=== PATIENT | female | born 1965 | race Caucasian/White ===

== ENCOUNTER 2016-09-12 15:48 | Emergency (ER) | payer OTHER ==
[~2016-09-12] VITALS: Ht 157.5 cm; Wt 47.6 kg
[~2016-09-12 15:48] MED LIST: ALBUTEROL2.5 MG/NEB IN; AMBIEN 10MG TAB10 MG PO; APAP/BUTALBITAL1 TA1 PO; ASPIRIN 81MG TA81 MG PO; ATIVAN1 MG PO; BREO ELLIPTA 21 EACH IH; BREO ELLIPTA1 POW IH; CELEXA40 MG PO; CLINORIL GENER150 MG PO; ESTRADIOL1 M1 PO; FIORICET W/CODE1 CA1 PO; GABAPENTIN 400400 M1 PO; GABAPENTIN300 M1 PO; HUMALOG100 U/M1 SC; HUMALOG100 U/ML SC; HYDROXYZINE HYD50 M1 PO; INCRUSE EL62.5 MCG/A IH; INDERAL OR; LANTUS INS100 UNITS/ SC; LEVEMIR100 U/ML SC; LEVOTHYROXINE0.15 M1 PO; LOMOTIL 2.5MG.2.5 MG PO; LORTAB 5/500 501 TAB PO; METFORMIN500 MG PO; NAPROXEN SODIU500 MG PO; NEXIUM40 MG PO; NORCO 325 MG-51 TAB PO; PRAMIPEXOLE DI0.5 MG PO; PRAVACHOL20 MG PO; PRAVACHOL40 MG PO; PREMARIN 0.60.625 MG PO; PROPRANOLOL HCL60 MG PO; SEPTRA DS 800 M1 TAB PO; SILVADENE1% TP; SYNTHROID PO; SYNTHROID0.088 MG PO; TRAMADOL 50MG T50 MG PO; TRAMADOL50 M1 PO; ULTRACET 325 MG1 TAB PO; ULTRAM50 MG PO; VENTOLIN H0.09 MG/Ac IH; ZOFRAN4 MG PO; ZONEGRAN25 MG PO
--- NOTE | 2016-09-12 16:50 | Emergency Room Report ---
History of Present Illness Time Seen by [id number] Presenting Problem in Triage Pt arrived:Walked Presenting Problem:C/O RIGHT SHOULDER PAIN X 1 MONTH. PATIENT REPORTS INJURY TO RIGHT SHOULDER. 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 N Clinical Suspician of Infection? N Mental Status: 1 - Regular (Normal Baseline) Sepsis Risk:Low Sepsis Risk Have you (or family members/close friends) recently traveled outside the [place]? N If Yes, where/when: Have you had exposure to infectious disease within the past month? N TB? Other? Specify: Source patient, RN notes reviewed Exam Limitations no limitations Comment Pt here with complaints of right shoulder pain "in the joint" for one month after throwing away things into a dumpster. Had been dealing with this pain by taking ibuprofen but aggravated it today by painting. Now pain is much worse than it was previously and is radiating toward elbow and into scapula. Timing/Duration 1 month, worse today Severity moderate Modifying Factors Improves With: medication, rest. Worsens With: exertion, movement, palpatioin. Associated Symptoms none ALLERGIES Coded Allergies: tramadol (Severe, 09/12/16) Blueberry (Mild, 01/25/16) mushroom (Mild, 01/25/16) Home Medications Active Scripts TRAMADOL HCL (Tramadol) 50 MG PO Q6HP PRN pain #12 TAB Prov: 07/08/16 HYDROXYZINE HCL (Hydroxyzine Hydrochloride) 50 MG PO TIDP PRN itching #20 TAB Prov: 07/08/16 HYDROCODONE/ACETAMINOPHEN ([place] 5-325 Tablet) 1 TAB PO Q6HP PRN pain #10 TAB Prov: 07/08/16 Silver Sulfadiazine (Silvadene) 1 CRE TP QID #1 TUB Ref 2 Prov: 05/18/16 Tramadol Hcl (Ultram 50MG) 50 MG PO QIDP PRN pain #12 TAB Prov: 05/18/16 Reported Medications Sulindac (Clinoril Generic 150MG Tab) 150 MG PO BID #60 Zonisamide (Zonegran) 75 MG PO BID CITALOPRAM HYDROBROMIDE (Citalopram HBr) 40 MG PO DAILY Zolpidem Tartrate (Ambien 10MG) 10 MG PO QHS Insulin Glargine (Lantus Insulin Vial) 10 UNITS SC BID PRAMIPEXOLE DI-HCL (Pramipexole Dihydrochloride) 0.5 MG PO DAILY #60 INSULIN LISPRO (Humalog) 0 UNITS SC QIDP PRN DIABETES Estradiol 1 MG PO DAILY #30 PROPRANOLOL HCL (Propranolol HCl ER) 60 MG PO DAILY #30 UMECLIDINIUM BROMIDE (Incruse Ellipta) 62.5 MCG IH DAILY Albuterol Sulfate (Ventolin Hfa) 0.09 MG IH Q4HP PRN BREATHING #18 Gabapentin (Gabapentin 400MG Capsule) 400 MG PO TID #90 Levothyroxine Sodium 0.15 MG PO DAILY #30 APAP 325MG/CAFF 40MG/BUTA 50MG (Juepwe-Ypoeakxz-Mtti 50-325-40) 1 TAB PO Q6HP PRN HEADACHE #21 ASPIRIN (Aspirin) 81 MG PO DAILY Pravastatin Sodium (Pravachol) 40 MG PO QHS #30 (GUSTABO THOMAS) Presenting Problem in Triage Pt arrived:Walked Presenting Problem:C/O RIGHT SHOULDER PAIN X 1 MONTH. PATIENT REPORTS INJURY TO RIGHT SHOULDER. 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 N Clinical Suspician of Infection? N Mental Status: 1 - Regular (Normal Baseline) Sepsis Risk:Low Sepsis Risk Have you (or family members/close friends) recently traveled outside the [place]? N If Yes, where/when: Have you had exposure to infectious disease within the past month? N TB? Other? Specify: (Debra BALLARD, Miguel) History Medical History General CAD? No Angina: No IA: No Hypertension? No Hyperlipidemia? Yes CHF? No DVT? No PE? No COPD? Yes Asthma? No Anemia? No GERD? No Gastric ulcers? No GI Bleed? No Hernia? No Thyroid Problems? Yes Hypothyroidism? Yes CVA? No Seizures? Yes Diabetes? Yes Insulin Dependent: Yes Insulin Pump: No Home FSBS? Yes Renal Insuffiency? No End Stage Renal Disease? No UTI? Yes Stones? No BPH? No GB Disease: Yes Nephritic Syndrome? No Asplenia? No Hepatitis? No Sickle Cell Disease? No Arthritis? Yes Migraines? No Cataracts? No Glaucoma? No MRSA? Yes HIV? No TB? No Anxiety? Yes Depression? Yes Cancer? No More? 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 Hx LMP N/A Family History Family Hx Diabetes Yes CAD No Hypertension No Hyperlipidemia No Cancer Yes TB No Social History Smoking Hx Smoker: Current Every Day Smoker Tobacco: Yes Type Cigarettes Packs/day < 1 Pack Alcohol Alcohol: No (GUSTABO THOMAS) Review of Systems All Other Systems Reviewed and Negative Musculoskeletal joint pain (rt shoulder) (GUSTABO THOMAS) Physical Exam Vital Signs Vital Signs Date Time Temp Pulse Resp B/P Pulse O2 O2 Flow FiO2 Ox Delivery Rate 09/12 1749 82 18 103/52 99 09/12 1710 19 09/12 1632 98.0 72 18 107/61 97 General Appearance normal appearance, WD/WN Eye Exam - bilateral eye normal exam, bilateral eye PERRL, bilateral eye EOMI Ear, Nose, Throat hearing grossly normal Respiratory Status Yes: trachea midline, chest symmetrical, non tender chest. No: respiratory distress. Lung Sounds bilateral: normal breath sounds, lungs clear. Cardiovascular normal exam, regular rate/rhythm, no peripheral edema, no gallop, no JVD, no murmur, no rub, normal peripheral pulses Back gait normal (normal c-spine) Extremities Pain with palpation over right humeral head, pain with movement over head and across chest, otherwise negative shoulder exam. 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 No Results/Orders Current Medication Orders Sig/Brianda Start time Last Medication Dose Route Stop Time Status Admin Ketorolac 0 .STK-MED ONE 09/12 1708 DC Tromethamine .ROUTE Ketorolac 60 MG ONCE ONE 09/12 1700 DC 09/12 Tromethamine IM 09/12 1701 1710 Orders Procedure Date/time Status [id number] 09/12 1651 Active XRAY/CT/US XRAY/CT/US XR interpretation by reviewed by me Xray Results normal/NAD, no fracture seen (GUSTABO THOMAS) Progress - I have discussed the patient's case with the mid-level practitioner. I agree with the the management and disposition based upon the information reported to me. (Miguel Richardson MD) Departure Departure Time of Disposition 174 Disposition DC Home or Self Care(routine) Clinical Impression Primary Impression: Shoulder bursitis Qualifiers: Laterality: right Qualified Code: M75.51 - Bursitis of right shoulder Condition STABLE Referrals NICKI VELAZCO (Family) Patient Instructions DI for Bursitis Additional Instructions Alternate ice and heat. Take medications as directed. Gentle stretching exercises twice daily. F/U with Dr Velazco in 7-10 days. If no better recommend seeing ortho for possible injection. Discharge Counseling Counseled pt/family regarding diagnosis, test results, medications/RX, home care, follow up needs Prescriptions Current Visit Scripts Methylprednisolone (Medrol Dose [place]) 4 MG PO UD #1 [place] TAKE DIRECTED ON PACKAGING ED Critical Care Critical Care No Comments Alternate ice and heat. Take medications as directed. Gentle stretching exercises twice daily. F/U with Dr Velazco in 7-10 days. If no better recommend seeing ortho for possible injection. (GUSTABO THOMAS) at 1744 at 1932
--- NOTE | 2016-09-12 16:50 | Emergency Room Report ---
History of Present Illness Time Seen by [id number] Presenting Problem in Triage Pt arrived:Walked Presenting Problem:C/O RIGHT SHOULDER PAIN X 1 MONTH. PATIENT REPORTS INJURY TO RIGHT SHOULDER. 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 N Clinical Suspician of Infection? N Mental Status: 1 - Regular (Normal Baseline) Sepsis Risk:Low Sepsis Risk Have you (or family members/close friends) recently traveled outside the [place]? N If Yes, where/when: Have you had exposure to infectious disease within the past month? N TB? Other? Specify: Source patient, RN notes reviewed Exam Limitations no limitations Comment Pt here with complaints of right shoulder pain "in the joint" for one month after throwing away things into a dumpster. Had been dealing with this pain by taking ibuprofen but aggravated it today by painting. Now pain is much worse than it was previously and is radiating toward elbow and into scapula. Timing/Duration 1 month, worse today Severity moderate Modifying Factors Improves With: medication, rest. Worsens With: exertion, movement, palpatioin. Associated Symptoms none ALLERGIES Coded Allergies: tramadol (Severe, 09/12/16) Blueberry (Mild, 01/25/16) mushroom (Mild, 01/25/16) Home Medications Active Scripts TRAMADOL HCL (Tramadol) 50 MG PO Q6HP PRN pain #12 TAB Prov: 07/08/16 HYDROXYZINE HCL (Hydroxyzine Hydrochloride) 50 MG PO TIDP PRN itching #20 TAB Prov: 07/08/16 HYDROCODONE/ACETAMINOPHEN ([place] 5-325 Tablet) 1 TAB PO Q6HP PRN pain #10 TAB Prov: 07/08/16 Silver Sulfadiazine (Silvadene) 1 CRE TP QID #1 TUB Ref 2 Prov: 05/18/16 Tramadol Hcl (Ultram 50MG) 50 MG PO QIDP PRN pain #12 TAB Prov: 05/18/16 Reported Medications Sulindac ([place] Generic 150MG Tab) 150 MG PO BID #60 Zonisamide (Zonegran) 75 MG PO BID CITALOPRAM HYDROBROMIDE (Citalopram HBr) 40 MG PO DAILY Zolpidem Tartrate (Ambien 10MG) 10 MG PO QHS Insulin Glargine (Lantus Insulin Vial) 10 UNITS SC BID PRAMIPEXOLE DI-HCL (Pramipexole Dihydrochloride) 0.5 MG PO DAILY #60 INSULIN LISPRO (Humalog) 0 UNITS SC QIDP PRN DIABETES Estradiol 1 MG PO DAILY #30 PROPRANOLOL HCL (Propranolol HCl ER) 60 MG PO DAILY #30 UMECLIDINIUM BROMIDE (Incruse Ellipta) 62.5 MCG IH DAILY Albuterol Sulfate (Ventolin Hfa) 0.09 MG IH Q4HP PRN BREATHING #18 Gabapentin (Gabapentin 400MG Capsule) 400 MG PO TID #90 Levothyroxine Sodium 0.15 MG PO DAILY #30 APAP 325MG/CAFF 40MG/BUTA 50MG (Pxlnon-Wraelecr-Pvfs 50-325-40) 1 TAB PO Q6HP PRN HEADACHE #21 ASPIRIN (Aspirin) 81 MG PO DAILY Pravastatin Sodium (Pravachol) 40 MG PO QHS #30 (GUSTABO THOMAS) Presenting Problem in Triage Pt arrived:Walked Presenting Problem:C/O RIGHT SHOULDER PAIN X 1 MONTH. PATIENT REPORTS INJURY TO RIGHT SHOULDER. 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 N Clinical Suspician of Infection? N Mental Status: 1 - Regular (Normal Baseline) Sepsis Risk:Low Sepsis Risk Have you (or family members/close friends) recently traveled outside the [place]? N If Yes, where/when: Have you had exposure to infectious disease within the past month? N TB? Other? Specify: (Debra BALLARD, Miguel) History Medical History General CAD? No Angina: No ID: No Hypertension? No Hyperlipidemia? Yes CHF? No DVT? No PE? No COPD? Yes Asthma? No Anemia? No GERD? No Gastric ulcers? No GI Bleed? No Hernia? No Thyroid Problems? Yes Hypothyroidism? Yes CVA? No Seizures? Yes Diabetes? Yes Insulin Dependent: Yes Insulin Pump: No Home FSBS? Yes Renal Insuffiency? No End Stage Renal Disease? No UTI? Yes Stones? No BPH? No GB Disease: Yes Nephritic Syndrome? No Asplenia? No Hepatitis? No Sickle Cell Disease? No Arthritis? Yes Migraines? No Cataracts? No Glaucoma? No MRSA? Yes HIV? No TB? No Anxiety? Yes Depression? Yes Cancer? No More? 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 LMP N/A Family History Family Hx Diabetes Yes CAD No Hypertension No Hyperlipidemia No Cancer Yes TB No Social History Smoking Hx Smoker: Current Every Day Smoker Tobacco: Yes Type Cigarettes Packs/day < 1 Pack Alcohol Alcohol: No (GUSTABO THOMAS) Review of Systems All Other Systems Reviewed and Negative Musculoskeletal joint pain (rt shoulder) (GUSTABO THOMAS) Physical Exam Vital Signs Vital Signs Date Time Temp Pulse Resp B/P Pulse O2 O2 Flow FiO2 Ox Delivery Rate 09/12 1749 82 18 103/52 99 09/12 1710 19 09/12 1632 98.0 72 18 107/61 97 General Appearance normal appearance, WD/WN Eye Exam - bilateral eye normal exam, bilateral eye PERRL, bilateral eye EOMI Ear, Nose, Throat hearing grossly normal Respiratory Status Yes: trachea midline, chest symmetrical, non tender chest. No: respiratory distress. Lung Sounds bilateral: normal breath sounds, lungs clear. Cardiovascular normal exam, regular rate/rhythm, no peripheral edema, no gallop, no JVD, no murmur, no rub, normal peripheral pulses Back gait normal (normal c-spine) Extremities Pain with palpation over right humeral head, pain with movement over head and across chest, otherwise negative shoulder exam. 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 No Results/Orders Current Medication Orders Sig/Brianda Start time Last Medication Dose Route Stop Time Status Admin Ketorolac 0 .STK-MED ONE 09/12 1708 DC Tromethamine .ROUTE Ketorolac 60 MG ONCE ONE 09/12 1700 DC 09/12 Tromethamine IM 09/12 1701 1710 Orders Procedure Date/time Status [id number] VIEWS 09/12 1651 Active XRAY/CT/US XRAY/CT/US XR interpretation by reviewed by me Xray Results normal/NAD, no fracture seen (GUSTABO THOMAS) Progress - I have discussed the patient's case with the mid-level practitioner. I agree with the the management and disposition based upon the information reported to me. (Miguel Richardson MD) Departure Departure Time of Disposition 174 Disposition DC Home or Self Care(routine) Clinical Impression Primary Impression: Shoulder bursitis Qualifiers: Laterality: right Qualified Code: M75.51 - Bursitis of right shoulder Condition STABLE Referrals NICKI VELAZCO (Family) Patient Instructions DI for Bursitis Additional Instructions Alternate ice and heat. Take medications as directed. Gentle stretching exercises twice daily. F/U with Dr Velazco in 7-10 days. If no better recommend seeing ortho for possible injection. Discharge Counseling Counseled pt/family regarding diagnosis, test results, medications/RX, home care, follow up needs Prescriptions Current Visit Scripts Methylprednisolone (Medrol Dose [place]) 4 MG PO UD #1 [place] TAKE DIRECTED ON PACKAGING ED Critical Care Critical Care No Comments Alternate ice and heat. Take medications as directed. Gentle stretching exercises twice daily. F/U with Dr Velazco in 7-10 days. If no better recommend seeing ortho for possible injection. (GUSTABO THOMAS) at 1744 at 1932
[2016-09-12] MEDS ORDERED: MEDROL 4MG. DOSE4 MG PO (17:01)
[2016-09-12 17:49] VITALS: BP 103/52
--- NOTE | 2016-09-13 06:52 | RADIOLOGY REPORT PS360 ---
[id number] VIEWS HISTORY: Pain right shoulder COMPARISON: None FINDINGS: No fracture or dislocation. No lytic or blastic change. There is normal mineralization. The joint spaces are well-preserved. No significant degenerative/arthritic changes. No erosive changes evident. Incidental note made of prominence of the interstitium of the right upper lobe IMPRESSION: Negative right shoulder
[2016-10-18] MEDS ORDERED: PROTONIX 40MG T40 MG PO (22:09)
== END 2016-09-12 17:50 | disposition home or self-care (01) ==
LOC: ER 15:48
DX: M75.51 Bursitis of right shoulder (principal); E11.9 Type 2 diabetes mellitus without complications; Z79.4 Long term (current) use of insulin; Z72.0 Tobacco use; F41.8 Other specified anxiety disorders; J44.9 Chronic obstructive pulmonary disease, unspecified; X50.3XXA Overexertion from repetitive movements, initial encounter; Y92.9 Unspecified place or not applicable

== ENCOUNTER → 2017-06-14 | Outpatient (CLI) | payer OTHER ==
[~2017-06-14] MED LIST changes: +MEDROL 4MG. DOSE4 MG PO; +PROTONIX 40MG T40 MG PO; +VISTARIL25 M1 PO
[2017-06-14 18:12] LABS: LYMPH # 1.7 K/mm3 (0.7-4.5); LYMPH % 29.1 % (10-50.0)
[2017-06-14 18:34] LABS: HEMOGLOBIN 16.7 g/dL (12.2-16.2)
[2017-06-14 18:56] LABS: BUN 13 mg/dL (7-18)
[2017-06-14 18:59] LABS: GFR (ESTIMATED) 75 ML/MIN (59-)
[2017-06-16 08:41] LABS: HBsAg Screen Negative (Negative); Hep A Ab, IgM Negative (Negative); Hep B Core Ab, IgM Negative (Negative); Hep C Virus Ab 0.1 (0.0-0.9); Vitamin B12 458 pg/mL (211-946)
== END ==
LOC: LAB 16:50
PROVIDERS: Emergency Medicine
DX: E11.9 Type 2 diabetes mellitus without complications (principal); R53.83 Other fatigue

== ENCOUNTER → 2017-06-27 | Outpatient (CLI) | payer OTHER ==
--- NOTE | 2017-06-27 13:58 | RADIOLOGY REPORT PS360 ---
BONE DENSITOMETRY(HIP:LT SPINE HISTORY: POST MENOPAUSAL ORDERING PHYSICIAN: Lauri Hurt MD PATIENT AGE: 51 years COMPARISON: None FINDINGS: The BMD measured at the L1-L4 is 1.003 g/cm squared with a T score of -1.5. This is considered Osteopenic according to the World Health Organization criteria. Fracture risk is Moderate. Treatment is advised. Total left hip density is 0.821 g/sq cm witha T score of -1.5 IMPRESSION: Osteopenia. Recommend follow-up exam June 2019
== END ==
LOC: RAD 10:30
DX: N95.1 Menopausal and female climacteric states (principal); Z13.820 Encounter for screening for osteoporosis